=== PATIENT | female | born 1975 | race Caucasian/White ===

== ENCOUNTER → 2019-04-24 | Outpatient (CLI) | payer OTHER | LOC: YHH 15:12 ==

== ENCOUNTER 2021-10-27 04:38 | Day surgery (SDC) | payer OTHER ==
[2021-10-23 09:43] VITALS: BMI 33.7
== END 2021-10-27 08:30 | disposition home or self-care (01) ==
LOC: JASU-ENDO 04:38
PROVIDERS: ATTEND Internal Medicine Gastroenterology
DX: Z53.8 Procedure and treatment not carried out for other reasons (principal)
CPT/HCPCS: 81025

== ENCOUNTER 2021-11-10 05:30 | Day surgery (SDC) | payer OTHER ==
[2021-11-03 14:57] VITALS: BMI 33.8
[2021-11-10] MEDS ORDERED: LIDOCAINE HCL 2% (20ML MULTI-DOSE VIAL) ONE (08:34)
[2021-11-10] MEDS ORDERED: LIDOCAINE VISCOUS 2% ORAL/TOP 15 ML UNIT-DOSE CUP ONE (08:34)
[2021-11-10 10:11] VITALS: TEMP 97.8
[2021-11-10 10:58] VITALS: BP 110/71; PULSE 55
== END 2021-11-10 10:58 | disposition home or self-care (01) ==
LOC: JASU-ENDO 05:30
PROVIDERS: ATTEND Internal Medicine Gastroenterology
PROC: 0DB78ZX Excision of Stomach, Pylorus, Via Natural or Artificial Opening Endoscopic, Diagnostic (ICD-10-PCS; 2021-11-10)
PROC: 0DB68ZX Excision of Stomach, Via Natural or Artificial Opening Endoscopic, Diagnostic (ICD-10-PCS; principal; 2021-11-10 08:45)
DX: K29.70 Gastritis, unspecified, without bleeding (principal); K44.9 Diaphragmatic hernia without obstruction or gangrene; B96.81 Helicobacter pylori [H. pylori] as the cause of diseases classified elsewhere
CPT/HCPCS: 81025; 88305-TC; 88342-TC